=== PATIENT | male | born 1970 | race Caucasian/White ===

== ENCOUNTER 2016-08-24 09:47 | Outpatient (CLI) | payer OTHER | END 2016-08-24 09:48 | disposition home or self-care (01) | DX: G47.33 Obstructive sleep apnea (adult) (pediatric) (principal) ==

== ENCOUNTER 2017-10-20 11:12 | Outpatient (CLI) | payer OTHER | END 2017-10-20 11:13 | disposition home or self-care (01) | LOC: SC 11:12 | PROVIDERS: ATTEND Nurse Practitioner Family | DX: G47.33 Obstructive sleep apnea (adult) (pediatric) (principal); R51 Headache | CPT/HCPCS: 99212; 99214 ==

== ENCOUNTER 2018-12-21 11:09 | Outpatient (CLI) | payer OTHER | END 2018-12-21 11:10 | disposition home or self-care (01) | LOC: SC 11:09 | PROVIDERS: ATTEND Nurse Practitioner Family | DX: G47.33 Obstructive sleep apnea (adult) (pediatric) (principal); R53.83 Other fatigue | CPT/HCPCS: 99212; 99214 ==

== ENCOUNTER 2021-06-20 14:25 | Outpatient (CLI) | payer OTHER ==
[2021-06-20 15:20] VITALS: BP 131/79
--- NOTE | 2021-06-20 15:20 | SLEEP CARE CONSULTATION ---
Information from patient questionnaire entered by Marilee Fine. I have reviewed and concur with the information entered by Marilee Fine. This document represents the service I personally performed and the decisions made by me, Elen Pineda ARNP. History of Present Illness Service Date and Time: 06/20/2021 1425 Previous diagnosis: Moderate, Obstructive Sleep Apnea-Hypopnea Syndrome AHI: 17.9 Reason for follow up: annual Equipment type: CPAP Equipment obtained from: [employer] (getting supplies as needed) Mask style: Nasal (cushion) Backup mask available: Yes (other mask) Last cushion change: while ago, months Prior sleep studies: Yes Year and Where: 2014 [facility] Type of Sleep Study: Polysomnography HPI additional information: VIRAJ RIVAS was diagnosed to have moderate, AHI 17.9, obstructive sleep apnea-hypopnea syndrome and returned today for CPAP therapy annual follow-up. Sleep Study - Results Type of Sleep Study: Polysomnography Prior sleep studies: Yes Year and Where: 2014 [facility] CPAP Compliance Data - Data Reviewed with Patient Average duration of nightly device use: 5 hours 31 minutes Compliance rate %: 42.2 Current pressure setting (cmH2O): 6 Humidity settin Heated hose settin Average residual AHI: 4.9 Average large leak: 7 seconds Subjective Missed days of use due to: reports: other (recall) Patient concerns: reports: air blowing in eyes (just needing adjustment). denies: aerophagia, mask discomfort, mask leak noise, condensation in mask/hose, nasal congestion, dry mouth, nose, throat, epistaxis, other Observed to snore while using device: Yes Current pressure setting perceived as: comfortable On therapy, patient: reports: sleeping better, awakening more refreshed, being more awake and alert during the day, more rested overall. denies: drowsiness while driving Initial [place] Sleepiness Scale score: 19 (in 2015) Current [place] Sleepiness Scale score: 15 Allergies and Home Medications Home medication list reviewed: Yes (no changes) Allergy and home medication list: Ambien Motrin, prn Review of Systems Review of systems same as previous: Yes (no changes) Physical Exam Blood Pressure: 131/79 (right) Cuff size: wrist Heart Rate: 66 O2 Saturation: 98 Height: 5 ft 8 in Weight: 171 lb 9.6 oz Body Mass Index: 26.1 BMI Classification: Overweight Impression and Plan 1. Obstructive Sleep Apnea-Hypopnea Syndrome, moderate, with poor treatment compliance and fair apnea control. On CPAP therapy, the patient has better sleep quality and is more rested overall. To resolve snore, the CPAP pressure will be changed to 7 cmH20. Patient advised to contact this office if pressure change uncomfortable or if pressure change does not resolve snore. Patient has already registered their device for the recall. Patient denies any black particles seen in machine or hoses, any unusual odors coming from device. Patient has not experienced any physical symptoms such as upper airway irritation, headache, skin or eye irritation, asthma, nausea/vomiting, difficulty breathing or chest pain. If patient is not able to sleep due to waking up choking, gasping for air or other respiratory distress that they may decide to continue using it until it is either replaced or repaired. Since the patients current machine is at least 5 years old the patient is opting to update their device with a device that is not on the recall. Patient voiced understanding and agreement with plan. Patient's apnea severity and rationale for treatment to reduce apnea, improve sleep quality and reduce cardiovascular and cerebrovascular events was reviewed. Patient has lost weight. Patient was encouraged to continue to try to lose weight for their overall health and to reduce apneas. * Change auto CPAP pressure to 7 cmH2O * Update device * Update supplies as needed * Notify me if snoring with mask or feeling that the pressure is too much or too little * Continue to try to lose weight * Call this office if any problems using CPAP * Return for follow up one month after obtaining new device, or sooner if concerns arise Counseling Topics: Spare mask, Weight loss health impact Visit Type: In Office Time Spent with Patient (minutes): 29 Provider Statement: I spent 100% of the Face to Face Visit with the patient with greater than 50% spent counseling the patient and coordination of care.
== END 2021-06-20 14:26 | disposition home or self-care (01) ==
LOC: SC 14:25
PROVIDERS: ATTEND Nurse Practitioner Family
DX: G47.33 Obstructive sleep apnea (adult) (pediatric) (principal)
CPT/HCPCS: 99212; 99213

== ENCOUNTER 2022-01-23 08:48 | Outpatient (CLI) | payer OTHER ==
[2022-01-23 09:25] VITALS: BP 143/91
--- NOTE | 2022-01-23 09:25 | SLEEP CARE CONSULTATION ---
Information from patient questionnaire entered by Maylin Herrera MA. I have reviewed and concur with the information entered by Maylin Herrera MA. This document represents the service I personally performed and the decisions made by , Elen Pineda ARNP. History of Present Illness Service Date and Time: 01/23/2022 0848 Previous diagnosis: Moderate, Obstructive Sleep Apnea-Hypopnea Syndrome AHI: 17.9 Reason for follow up: first compliance (ELEANOR PITTS 10/28/2021, ), first compliance after device update Equipment type: CPAP Equipment obtained from: [employer] (getting supplies as needed) Mask style: Nasal (cushion) Backup mask available: Yes (other mask) Last cushion change: 1-2 weeks ago Prior sleep studies: Yes Year and Where: 2014 [facility] Type of Sleep Study: Polysomnography HPI additional information: VIRAJ RIVAS was diagnosed to have moderate, AHI 17.9, obstructive sleep apnea-hypopnea syndrome and returned today for CPAP therapy first compliance after updating device follow-up. Sleep Study - Results Type of Sleep Study: Polysomnography Prior sleep studies: Yes Year and Where: 2014 [facility] CPAP Compliance Data - Data Reviewed with Patient Average duration of nightly device use: 5 HOURS 38 MINUTES Compliance rate %: 70 (12/23/2021-) Current pressure setting (cmH2O): 7 Average residual AHI: 1.6 Central apnea: .2 Obstructive apnea: 1. Hypopnea: .3 Average large leak: 22.2 Subjective Missed days of use due to: reports: travel Patient concerns: reports: dry mouth, nose, throat. denies: aerophagia, mask discomfort, air blowing in eyes, mask leak noise, condensation in mask/hose, nasal congestion, epistaxis, other Observed to snore while using device: No Current pressure setting perceived as: comfortable (MIGHT BE TOO HIGH,) On therapy, patient: reports: sleeping better, more rested overall, other (sometime yes and sometimes no - may be due to stress). denies: drowsiness while driving Initial [place] Sleepiness Scale score: 19 (in 2014) Current [place] Sleepiness Scale score: 16 (01/23/2022) Allergies and Home Medications Known drug allergies: No Drug allergies reviewed: Yes Home medication list reviewed: Yes (no changes) Allergy and home medication list: Takes Ambien 10 mg, takes 1/2 tab nightly. Review of Systems Review of systems same as previous: Yes (no changes) Physical Exam Vital signs obtained and entered by: GREG DICKERSON Blood Pressure: 143/91 (RESP 16, PULSE 75, LEFT,) Cuff size: wrist Heart Rate: 75 O2 Saturation: 98 Height: 5 ft 8 in Weight: 167 lb (CLOTHES) Weight change since last visit: TRYING TO BUILD MUSCLE, Body Mass Index: 25.4 BMI Classification: Overweight Impression and Plan 1. Obstructive Sleep Apnea-Hypopnea Syndrome, moderate, with good treatment compliance and good apnea control. On CPAP therapy, the patient has better sleep quality and is more rested overall. Patient has been having difficulty with a very dry mouth with his new device. He does not know how to adjust the humidity and I demonstrated this on his CPAP today. We increased his humidity from 4-5 to see if this will help with the oral dryness. Patient feels like his mouth is coming open at night and I explained that this could also increase his oral dryness. He states his chinstrap broke and I wrote a prescription for him to get a another chinstrap. Patient's apnea severity and rationale for treatment to reduce apnea, improve sleep quality and reduce cardiovascular and cerebrovascular events was reviewed. 2. Overweight, unspecified. Patient is considered overweight with a BMI 25.4. He is trying to increase his muscle mass through exercise. I encouraged him to maintain a healthy weight and he voiced understanding. * Continue CPAP pressure at 7 cmH2O * Patient to order a chinstrap to reduce oral venting * Notify me if snoring with mask or feeling that the pressure is too much or too little * Maintain a healthy lose weight * Call this office if any problems using CPAP * Return for follow up in 1 year, or sooner if concerns arise Counseling Topics: Spare mask, Weight loss health impact Visit Type: In Office Time Spent with Patient (minutes): 23 Provider Statement: I spent 100% of the Face to Face Visit with the patient with greater than 50% spent counseling the patient and coordination of care.
== END 2022-01-23 08:49 | disposition home or self-care (01) ==
LOC: SC 08:48
PROVIDERS: ATTEND Nurse Practitioner Family
DX: G47.33 Obstructive sleep apnea (adult) (pediatric) (principal); E66.3 Overweight; Z68.25 Body mass index [BMI] 25.0-25.9, adult
CPT/HCPCS: 99212; 99213

== ENCOUNTER 2023-02-12 10:09 | Outpatient (CLI) | payer OTHER ==
--- NOTE | 2023-02-12 10:33 | Sleep Patient Instructions ---
Sleep Center Visit Summary - Patient Visit Information Reason for Visit: Annual visit for PAP therapy - Patient Instructions Additional Instructions: You will continue with CPAP therapy with pressure set at 7 cmH2O. A supply prescription will be updated with your DME Please follow up with the sleep care office in 1 year. - Clinic Information Contact: [facility] [address] [place] [address] [email or web address] T: [phone]
--- NOTE | 2023-02-12 10:39 | SLEEP CARE CONSULTATION ---
Information from patient questionnaire entered by Isaias Cancino. I have reviewed and concur with the information entered by Isaias Cancino. This document represents the service I personally performed and the decisions made by me, Elen Pineda ARNP. History of Present Illness Service Date and Time: 02/12/2023 1009 Previous diagnosis: Moderate, Obstructive Sleep Apnea-Hypopnea Syndrome AHI: 17.9 Reason for follow up: annual (LAST SEEN 01/2022) Equipment type: CPAP (RESMED 11; s/u 10/2021) Equipment obtained from: [employer] (getting supplies as needed) Mask style: Nasal (cushion) Mask brand: Respironics (Dreamwear) Backup mask available: Yes (old mask) Last cushion change: couple months Prior sleep studies: Yes Year and Where: 2014 [facility] Type of Sleep Study: Polysomnography HPI additional information: VIRAJ RIAVS was diagnosed to have moderate, AHI 17.9, obstructive sleep apnea-hypopnea syndrome and returned today for CPAP therapy annual follow-up. Sleep Study - Results Type of Sleep Study: Polysomnography Prior sleep studies: Yes Year and Where: 2014 [facility] CPAP Compliance Data - Data Reviewed with Patient Average duration of nightly device use: 5 hours 12 minutes Compliance rate %: 46 (105/180 days used) Current pressure setting (cmH2O): 7 Average residual AHI: 1.7 Central apnea: 0.2 Obstructive apnea: 1.1 Hypopnea: 0.3 Average large leak: 2.1 L/min Subjective Missed days of use due to: reports: travel Patient concerns: reports: dry mouth, nose, throat. denies: aerophagia, mask discomfort, air blowing in eyes, mask leak noise, condensation in mask/hose, epistaxis Observed to snore while using device: Yes (per , occasional) Current pressure setting perceived as: comfortable On therapy, patient: reports: sleeping better, awakening more refreshed, being more awake and alert during the day, more rested overall. denies: drowsiness while driving Initial [place] Sleepiness Scale score: 19 (in 2014) Current [place] Sleepiness Scale score: 16 (02/12/23) Allergies and Home Medications Known drug allergies: No Drug allergies reviewed: Yes Home medication list reviewed: Yes (no changes) Review of Systems Review of systems same as previous: Yes (no changes) Physical Exam Vital signs obtained and entered by: ISAIAS Menendez MA Blood Pressure: 116/68 (LEFT ARM) Cuff size: regular Heart Rate: 66 O2 Saturation: 99 Height: 5 ft 8 in Weight: 169 lb 12.8 oz (161 at home) Body Mass Index: 25.8 BMI Classification: Overweight Impression and Plan 1. Obstructive Sleep Apnea-Hypopnea Syndrome, moderate, with fair treatment compliance and good apnea control. On CPAP therapy, the patient has better sleep quality and is more rested overall. Patient has been travelling a lot for work and vacation. He does not take his CPAP with him on those occasions. I advised him to try to take when he travels and also to maintain 4 or more hours on nights he uses device. He voiced understanding and agreement. Patient's apnea severity and rationale for treatment to reduce apnea, improve sleep quality and reduce cardiovascular and cerebrovascular events was reviewed. 2. Overweight, unspecified. Currently patients BMI is 25.8. He states he is normally 7 pounds less on his scale at home. Obesity increases the risk of apnea, CPAP pressure requirements and overall health risks especially cardiovascular and diabetes. Thus patient is advised to lose weight. * Continue CPAP pressure at 7 cmH2O * Update supplies * Notify me if snoring with mask or feeling that the pressure is too much or too little * Attempt to lose weight * Call this office if any problems using CPAP * Return for follow up in 1 year, or sooner if concerns arise * Counseling Topics: Spare mask, Weight loss health impact Visit Type: In Office Time Spent with Patient (minutes): 23 Provider Statement: I spent 100% of the Face to Face Visit with the patient with greater than 50% spent counseling the patient and coordination of care.
[2023-02-12 10:42] VITALS: BP 116/68
== END 2023-02-12 10:10 | disposition home or self-care (01) ==
LOC: SC 10:09
PROVIDERS: ATTEND Nurse Practitioner Family
DX: G47.33 Obstructive sleep apnea (adult) (pediatric) (principal); E66.3 Overweight; Z68.25 Body mass index [BMI] 25.0-25.9, adult
CPT/HCPCS: 99212; 99213

== ENCOUNTER 2023-06-16 12:47 | Outpatient (CLI) | payer OTHER ==
--- NOTE | 2023-06-16 13:18 | Sleep Patient Instructions ---
Sleep Center Visit Summary - Patient Visit Information Reason for Visit: 4 month followup - Patient Instructions Additional Instructions: You were here for follow up of CPAP therapy. You will be continued on CPAP therapy with pressure at 7 cmH2O. You should follow up with sleep care for insomnia with Dr. Sotelo in 1-2 months. You may contact us sooner for any questions or concerns. - Clinic Information Contact: [facility] [address] [place] [id number] [email or web address] T: [phone]
[2023-06-16 13:32] VITALS: BP 102/70; O2SAT 98
--- NOTE | 2023-06-16 13:32 | SLEEP CARE CONSULTATION ---
Information from patient questionnaire entered by Isaias Cancino. I have reviewed and concur with the information entered by Isaias Cancino. This document represents the service I personally performed and the decisions made by me, Elen Pineda ARNP. History of Present Illness Service Date and Time: 06/16/2023 1247 Previous diagnosis: Moderate, Obstructive Sleep Apnea-Hypopnea Syndrome AHI: 17.9 Reason for follow up: other (4 MONTH F/U) Equipment type: CPAP (RESMED 11; s/u 10/2021) Equipment obtained from: [employer] (getting supplies as needed) Mask style: Nasal (cushion) Mask brand: Respironics (Dreamwear) Backup mask available: Yes Last cushion change: couple months Prior sleep studies: Yes Year and Where: 2014 [facility] Type of Sleep Study: Polysomnography HPI additional information: VIRAJ RIVAS was diagnosed to have moderate, AHI 17.9, obstructive sleep apnea-hypopnea syndrome and returned today for CPAP therapy 4 month follow-up. Sleep Study - Results Type of Sleep Study: Polysomnography Prior sleep studies: Yes Year and Where: 2014 [facility] CPAP Compliance Data - Data Reviewed with Patient Average duration of nightly device use: 5 hours 23 minutes Compliance rate %: 67 (89/121 days used) Current pressure setting (cmH2O): 7 Average residual AHI: 1.7 Central apnea: 0.3 Obstructive apnea: 1 Hypopnea: 0.4 Average large leak: 1.8 L/min Subjective Missed days of use due to: reports: travel, other (fall asleep without mask ) Patient concerns: reports: dry mouth, nose, throat. denies: aerophagia, mask discomfort, air blowing in eyes, mask leak noise, condensation in mask/hose, nasal congestion, epistaxis Observed to snore while using device: No Current pressure setting perceived as: comfortable On therapy, patient: reports: sleeping better, awakening more refreshed, being more awake and alert during the day, more rested overall. denies: drowsiness w hile driving Initial [place] Sleepiness Scale score: 19 (in 2014) Current [place] Sleepiness Scale score: 17 (06/16/2023) Allergies and Home Medications Known drug allergies: No Drug allergies reviewed: Yes Home medication list reviewed: Yes (no changes) Allergy and home medication list: Allergies No Known Drug Allergies Allergy (Verified 06/15/23 15:01) Review of Systems Review of systems same as previous: Yes (NO CHANGE) Physical Exam Vital signs obtained and entered by: ISAIAS Menendez MA Blood Pressure: 102/70 (LEFT ARM) Cuff size: regular Heart Rate: 78 O2 Saturation: 98 Height: 5 ft 8 in Weight: 173 lb 6.4 oz Body Mass Index: 26.4 BMI Classification: Overweight Impression and Plan 1. Obstructive Sleep Apnea-Hypopnea Syndrome, moderate, with fair treatment compliance and good apnea control. On CPAP therapy, the patient has better sleep quality and is more rested overall. Patient has significant improvement of their sleep apnea and is satisfied with current CPAP therapy. Patient has no complaints about his CPAP therapy. He knows he needs to increase the time in the mask but he just has time where he full sleep without his mask or does not take the CPAP when he is traveling. I encouraged him to continue to try and increase time in his mask and put his mask on before laying down so that he we will not forget to have the mask on for sleep. He voiced understanding and agreement. Patient's apnea severity and rationale for treatment to reduce apnea, improve sleep quality and reduce cardiovascular and cerebrovascular events was reviewed. 2. Insomnia, unspecified. Patient has a history since 2008 taking half a pill of a 10 mg Ambien for sleep. He states it works well for him and he is able to go to sleep and get good sleep at night. He has tried other medications for sleep but he has not found anything else that works as well. He comes in today to see if there are other treatment options for his insomnia. I will have him follow up with Dr. Stanley for further evaluation and treatment as needed. He will fill out 2 weeks sleep diary prior to his appointment. 3. Overweight, unspecified. Currently patients BMI is 26.4. Obesity increases the risk of apnea, CPAP pressure requirements and overall health risks especially cardiovascular and diabetes. Thus patient is advised to lose weight. * Continue auto CPAP pressure at 7 cmH2O * Fill out 2 weeks of sleep diary and bring to followup appointment * Notify me if snoring with mask or feeling that the pressure is too much or too little * Attempt to lose weight * Call this office if any problems using CPAP * Return for follow up for insomnia with Dr. Stanley, or sooner if concerns arise Counseling Topics: Spare mask, Weight loss health impact Follow up with Sleep Care in: 1-2 months (for insomnia) Visit Type: In Office Time Spent with Patient (minutes): 29 Provider Statement: I spent 100% of the Face to Face Visit with the patient with greater than 50% spent counseling the patient and coordination of care.
== END 2023-06-16 12:48 | disposition home or self-care (01) ==
LOC: SC 12:47
PROVIDERS: ATTEND Nurse Practitioner Family
DX: G47.33 Obstructive sleep apnea (adult) (pediatric) (principal); G47.00 Insomnia, unspecified; E66.3 Overweight; Z68.26 Body mass index [BMI] 26.0-26.9, adult; Z79.899 Other long term (current) drug therapy
CPT/HCPCS: 99212; 99213

== ENCOUNTER 2023-07-26 12:46 | Outpatient (CLI) | payer OTHER ==
--- NOTE | 2023-07-28 16:21 | SLEEP CARE CONSULTATION ---
Information from patient questionnaire entered by Isaias Cancino. I have reviewed and concur with the information entered by Isaias Cancino. This document represents the service I personally performed and the decisions made by me, Tigre Stanley MD, [facility]. History of Present Illness Service Date and Time: 07/26/2023 1246 Previous diagnosis: Moderate, Obstructive Sleep Apnea-Hypopnea Syndrome AHI: 17.9 Reason for follow up: other (ONE MONTH F/U ON INSOMNIA) Equipment type: CPAP (RESMED 11; s/u 10/2021) Equipment obtained from: [employer] (getting supplies as needed) Mask style: Nasal (cushion) [facility]: Yes [facility] of Sleep Study: Polysomnography HPI additional information: Mr. Anderson was diagnosed to have moderate obstructive sleep apnea-hypopnea syndrome and returns today for follow up of CPAP therapy. The patient purchased the device from [employer] and was fitted with a nasal mask. He uses the ResMed AirSense 10 most of the time. The compliance report shows that he uses the device 67 nights out of the past 90 nights, averaging 5.3 hours a night. He complains of no particular problem with the device such as soreness on the face, dry nose, epistaxis, nasal congestion or headache. He thinks that the pressure of 7 cmH2O is comfortable. [place] Sleepiness Scale score is __. The average residual AHI is 1.4 ; and average time in large leak per day is 0.6 minutes a night. The actually is here today because of insomnia. According to him, he has been taking zolpidem for at least 10 years and his primary care provider does not want to refill it indefinitely. Presently, he takes 5 mg every night. Once in a while when he tried not taking it, he would lie awake all night. He reports going to bed around 11 pm to midnight and getting up around 5 6 am. The CPAP compliance report, however, shows occasional usage until 8 am (although the clock time on his machine cannot be confirmed). Sleep Study - Results Type of Sleep Study: Polysomnography Prior sleep studies: Yes Year and Where: 2014 [email or web address] Subjective Initial [place] Sleepiness Scale score: 19 (in 2014) Current [place] Sleepiness Scale score: 18 (07/26/23) Allergies and Home Medications Drug allergies reviewed: Yes Home medication list reviewed: Yes Allergy and home medication list: Allergies No Known Drug Allergies Allergy (Verified 07/21/23 15:31) Review of Systems Review of systems same as previous: Yes (NO CHANGE) Physical Exam Vital signs obtained and entered by: ISAIAS Menendez MA Blood Pressure: 134/84 (LEFT ARM) Cuff size: regular Heart Rate: 79 O2 Saturation: 100 Height: 5 ft 8 in Weight: 172 lb 3.2 oz Body Mass Index: 26.2 BMI Classification: Overweight Impression and Plan IMPRESSION: 1. Obstructive Sleep Apnea-Hypopnea Syndrome, moderate (AHI was 17.9) with the patient having [id number] compliance. The current pressure appears effective and comfortable. Overall, he is very satisfied with treatment and plans to continue with it long-term. No adjustment is necessary today. 2. Insomnia, not present on zolpidem 5 mg every night. Most likely he is psychologically dependent on it. He has a decent sleep-wake schedule. He should do fine without zolpidem if he can get over the rebound effect. I agree with his primary care provider that the patient should eventually get off the medication. I recommend the medication be tapered off very slowly over several months. He should keep a sleep diary but if he uses his CPAP all the time, the compliance report can serve as the diary. PLAN: 1. Continue with the medication but wean off very slowly, e.g.. 2.5 mg one night a week and increase to 2 nights a week after a week, and so on. Once down to 2.5 mg every night, then he can stop the medication 1 night a week, then 2 nights a week, until he comes off it altogether. Using the medication once in a while is acceptable. 2. Check the clock time on his CPAP. If it is not set on the correct time zone, it should be adjusted because we can use the compliance report in lieu of sleep log. 3. Return for a follow up in 2 months. Follow up with Sleep Care in: 1-2 months Visit Type: In Office Time Spent with Patient (minutes): 25 Provider Statement: I spent 100% of the Face to Face Visit with the patient with greater than 50% spent counseling the patient and coordination of care.
[2023-07-28 16:23] VITALS: BP 134/84; O2SAT 100
== END 2023-07-26 12:47 | disposition home or self-care (01) ==
LOC: SC 12:46
PROVIDERS: ATTEND Internal Medicine Pulmonary Disease
DX: G47.33 Obstructive sleep apnea (adult) (pediatric) (principal); G47.00 Insomnia, unspecified; Z79.899 Other long term (current) drug therapy
CPT/HCPCS: 99212

== ENCOUNTER 2023-09-13 13:07 | Outpatient (CLI) | payer OTHER ==
--- NOTE | 2023-09-13 20:26 | SLEEP CARE CONSULTATION ---
Information from patient questionnaire entered by Isaias Cancino. I have reviewed and concur with the information entered by Isaias Cancino. This document represents the service I personally performed and the decisions made by me, Tigre Stanley MD, [facility]. History of Present Illness Service Date and Time: 09/13/2023 1307 Previous diagnosis: Moderate, Obstructive Sleep Apnea-Hypopnea Syndrome AHI: 17.9 Reason for follow up: other (2 MONTH F/U) Equipment type: CPAP (RESMED 11; s/u 10/2021) Equipment obtained from: [employer] (getting supplies as needed) Mask style: Nasal (cushion) Prior sleep studies: Yes Year and Where: 2014 [facility] Type of Sleep Study: Polysomnography HPI additional information: Mr. Anderson was diagnosed to have moderate obstructive sleep apnea-hypopnea syndrome but also complains of insomnia. On his last visit, I encouraged him to use his CPAP regularly, so that we can use the compliance data as his sleep log. The data show him going to bed around 11 pm and getting up around 5:15 am. He does have fairly regular sleep-wake schedule. The pressure is effective. Sleep Study - Results Type of Sleep Study: Polysomnography Prior sleep studies: Yes Year and Where: 2014 [facility] CPAP Compliance Data - Data Reviewed with Patient Average duration of nightly device use: 5HRS 21MINS Compliance rate %: 73 (07/12/23-09/09/23) Current pressure setting (cmH2O): 7-7 Average residual AHI: 1.6 Subjective Initial [place] Sleepiness Scale score: 19 (in 2014) Current [place] Sleepiness Scale score: 16 (09/13/23) Allergies and Home Medications Drug allergies reviewed: Yes Home medication list reviewed: Yes Allergy and home medication list: Allergies No Known Drug Allergies Allergy (Verified 09/10/23 12:31) Review of Systems Review of systems same as previous: Yes Physical Exam Vital signs obtained and entered by: ISAIAS Menendez MA Blood Pressure: 141/82 (LEFT ARM) Cuff size: regular Heart Rate: 69 O2 Saturation: 100 Height: 5 ft 8 in Weight: 177 lb Body Mass Index: 26.9 BMI Classification: Overweight Impression and Plan IMPRESSION: 1. Obstructive Sleep Apnea-Hypopnea Syndrome, moderate (AHI was 17.9) with the patient now having adequate compliance. The current pressure appears effective and comfortable. Overall, he is very satisfied with treatment and plans to continue with it long-term. No adjustment is necessary today. 2. Insomnia, not present on zolpidem 5 mg every night. Because he is running out of the medication, he has resorted to take 2.5 mg every night. He said he is doing alright on half the tablet. Therefore, I encouraged him to stay on 2.5 mg. In a few months, I will have him start skipping days, first on weekends. PLAN: 1. Stay on zolpidem 2.5 mg qhs on as needed basis for now. 2. Follow up with his primary care provider regarding persistent fatigue. 3. Return for a follow up in 6 months. I will start weaning the zolpidem then. Follow up with Sleep Care in: 6 months Follow up with: PCP Visit Type: In Office Time Spent with Patient (minutes): 15 Provider Statement: I spent 100% of the Face to Face Visit with the patient with greater than 50% spent counseling the patient and coordination of care.
[2023-09-13 20:33] VITALS: BP 141/82; O2SAT 100
== END 2023-09-13 13:08 | disposition home or self-care (01) ==
LOC: SC 13:07
PROVIDERS: ATTEND Internal Medicine Pulmonary Disease
DX: G47.33 Obstructive sleep apnea (adult) (pediatric) (principal); G47.00 Insomnia, unspecified; Z79.899 Other long term (current) drug therapy; Z68.26 Body mass index [BMI] 26.0-26.9, adult; E66.3 Overweight
CPT/HCPCS: 99212

== ENCOUNTER 2024-01-11 16:19 | Outpatient (CLI) | payer OTHER ==
--- NOTE | 2024-01-12 21:43 | MRI Report ---
PROCEDURE: Shoulder LT WO INDICATIONS: L SHOULDDER PAIN TECHNIQUE: Noncontrast oblique coronal T2 fast spin echo with fat saturation, oblique sagittal T1 spin echo and T2 fast spin echo with fat saturation, axial T1 spin echo and T2 fast spin echo with fat saturation t hrough the shoulder. COMPARISON: None. FINDINGS: Image quality: Excellent. Rotator cuff: Low to moderate grade bursal surface partial-thickness tear involving distal supraspina tus extending to musculotendinous junction is seen. Distal infraspinatus tendinosis is seen. Low-grad e partial-thickness tear involving superior fibers of distal subscapularis is noted. No full-thicknes s rotator cuff tendon rupture. No rotator cuff muscle atrophy on sagittal images. Bones and bursae: No bone marrow contusions or fractures. Moderate acromioclavicular joint osteoarth ritic changes are seen with joint space narrowing and downward osteophyte formation depressing on mus culotendinous junction of supraspinatus. Moderate glenohumeral joint osteoarthritic changes also seen . There is small amount of subacromial subdeltoid bursal fluid, no gross loose bodies. Capsule and soft tissues: There is fraying of posterior superior labrum suggestive of labral tear. Th e glenohumeral ligaments are intact. The long head of the biceps tendon is thickened. The rotator int erval appears normal, without fibrosis. The coracohumeral ligament is normal in thickness. IMPRESSION: 1. Low to moderate grade bursal surface partial-thickness tear involving distal supraspinatus extendi ng to musculotendinous junction. Distal infraspinatus tendinosis. Low-grade partial-thickness tear in volving superior fibers of distal subscapularis. No full-thickness rotator cuff tendon rupture. No si gnificant rotator cuff muscle atrophy. 2. 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 No fracture or dislocation. Small amount of joint effusion and subacromial subdeltoid bursal fluid, no loose bod ies. 3. Suggestion of posterior superior labral tear. 4. Proximal long head of biceps tendinosis. Reviewed by: Carrillo Rodriguez MD on 01/12/2024 9:41 PM PDT Approved by: Carrillo Rodriguez MD on 01/12/2024 9:41 PM PDT Station ID: [id number]
== END 2024-01-11 16:20 | disposition home or self-care (01) ==
LOC: DI 16:19
PROVIDERS: ATTEND Nurse Practitioner Family
DX: M75.112 Incomplete rotator cuff tear or rupture of left shoulder, not specified as traumatic (principal); M19.012 Primary osteoarthritis, left shoulder; M25.412 Effusion, left shoulder; M67.922 Unspecified disorder of synovium and tendon, left upper arm

== ENCOUNTER 2024-03-20 15:31 | Outpatient (CLI) | payer OTHER ==
--- NOTE | 2024-03-27 20:02 | SLEEP CARE CONSULTATION ---
Information from patient questionnaire entered by Isaias Cancino. I have reviewed and concur with the information entered by Isaias Cancino. This document represents the service I personally performed and the decisions made by me, Tigre Stanley MD, [facility]. History of Present Illness Service Date and Time: 03/20/2024 1531 Previous diagnosis: Moderate, Obstructive Sleep Apnea-Hypopnea Syndrome AHI: 17.9 Reason for follow up: six month (F/U) Equipment type: CPAP (RESMED 11; s/u 10/2021) Equipment obtained from: [employer] (getting supplies as needed) Mask style: Nasal (cushion) Prior sleep studies: Yes Year and Where: 2014 [facility] Type of Sleep Study: Polysomnography HPI additional information: Mr. Anderson was diagnosed to have moderate obstructive sleep apnea-hypopnea syndrome but also complains of insomnia. He is using his CPAP most of the time except for when he travels. He hardly takes zolpidem anymore. The compliance data show usage in 278 out of the past 365 nights, averaging 5.3 hours a night. The residual AHI is 1.5 and average air leak is 0.4 L/minute. Sleep Study - Results Type of Sleep Study: Polysomnography Prior sleep studies: Yes Year and Where: 2014 [facility] CPAP Compliance Data - Data Reviewed with Patient Average duration of nightly device use: 5HRS 15MINS Compliance rate %: 66 (09/18/23-03/15/24) Current pressure setting (cmH2O): 7-7 Average residual AHI: 1.6 Subjective Missed days of use due to: reports: illness, travel Patient concerns: reports: dry mouth, nose, throat, other ([place]) Current pressure setting perceived as: comfortable Initial [place] Sleepiness Scale score: 19 (in 2014) Current [place] Sleepiness Scale score: 18 (03/20/24) Allergies and Home Medications Drug allergies reviewed: Yes Home medication list reviewed: Yes Allergy and home medication list: Allergies No Known Drug Allergies Allergy (Verified 03/20/24 15:33) Review of Systems Review of systems same as previous: Yes (NO CHANGE) Physical Exam Vital signs obtained and entered by: ISAIAS Menendez MA Blood Pressure: 131/89 (RIGHT ARM) Cuff size: regular Heart Rate: 68 O2 Saturation: 98 Height: 5 ft 8 in Weight: 187 lb 12.8 oz Body Mass Index: 28.5 BMI Classification: Overweight Impression and Plan IMPRESSION: 1. Obstructive Sleep Apnea-Hypopnea Syndrome, moderate (AHI was 17.9) with the patient now having adequate compliance. The current pressure appears effective and comfortable. Overall, he is very satisfied with treatment and plans to continue with it long-term. No adjustment is necessary today. 2. Insomnia, not present on zolpidem 5 mg every night. Because he is running out of the medication, he has resorted to take 2.5 mg every night. He said he is doing alright on half the tablet. Therefore, I encouraged him to stay on 2.5 mg. In a few months, I will have him start skipping days, first on weekends. PLAN: 1. Refill zolpidem 2.5 mg qhs on as needed; #30 with no refill. 2. Continue with autoCPAP set at 7 cmH2O. 3. Return for a follow up in a year or earlier if there is any problem. Continue with device pressure at (cmH2O): 7 Follow up with Sleep Care in: 1 year Visit Type: In Office Time Spent with Patient (minutes): 15 Provider Statement: I spent 100% of the Face to Face Visit with the patient with greater than 50% spent counseling the patient and coordination of care.
[2024-03-27 20:06] VITALS: BP 131/89; O2SAT 98
== END 2024-03-20 15:32 | disposition home or self-care (01) ==
LOC: SC 15:31
PROVIDERS: ATTEND Internal Medicine Pulmonary Disease
DX: G47.33 Obstructive sleep apnea (adult) (pediatric) (principal); G47.00 Insomnia, unspecified; E66.3 Overweight; Z68.28 Body mass index [BMI] 28.0-28.9, adult; Z79.899 Other long term (current) drug therapy
CPT/HCPCS: 99212